=== PATIENT | female | born 1995 | race Caucasian/White ===

== ENCOUNTER 2019-11-27 10:13 | Emergency (ER) | payer BC, SELFPAY ==
--- NOTE | ~2019-11-27 | XR_ITS ---
EXAMINATION: XR chest 1V portable EXAM DATE: 11/27/2019 11:17 INDICATION: Midsternal chest pain. TECHNIQUE: Portable AP frontal chest x-ray was obtained. Comparison is made to prior examination from 09/02/2014. FINDINGS: The lungs are clear. There are no pleural effusions. The cardiomediastinal silhouette is within normal limits. There is no pneumothorax suspected. The bones and soft tissues are unremarkab le. IMPRESSION: Normal chest x-ray exam. Reviewed, dictated and finalized at location B. IMPRESSION: Normal chest x-ray exam.
[2019-11-27 10:23] VITALS: BP 120/70; PULSE 116; RESP 18; TEMP 36.7; O2SAT 100
--- NOTE | 2019-11-27 10:45 | ECG_ITS ---
Measurements Intervals [place] Rate: 113 P: 70 ME: 161 QRS: 68 QRSD: 85 T: 29 QT: 313 QTc: 429 Interpretive Statements SINUS TACHYCARDIA INCOMPLETE RIGHT BUNDLE BRANCH BLOCK ABNORMAL ECG Electronically Signed On 11-27-2019 15:41:54 CDT by Moshe Moss D.O.
[2019-11-27 10:53] VITALS: PULSE 116
[2019-11-27] MEDS: FAMOTIDINE 20 MG/2 ML VIAL IV PUSH (11:04)
[2019-11-27] MEDS: SODIUM CHLORIDE 0.9% IV 1,000 ML 999 ML IV CONT (11:05)
[2019-11-27 11:06] LABS: Basophils Absolute Auto 0.1 K/mm3 (0.0-0.1); Basophils Percent Auto 0.6 % (0.2-1.2); Eosinophils Absolute Auto 0.1 K/mm3 (0-0.3); Hematocrit 30.3 % (37.0-47.0); Hemoglobin 9.1 g/dL (12.0-15.0); Immature Granulocyte Absolute 0.02 K/mm3 (0.00-0.031); Immature Granulocyte Percent A 0.2 % (0-0.5); Lymphocytes Absolute Auto 0.95 K/mm3 (0.9-3.2); Lymphocytes Percent Auto 8.6 % (18.3-44.2); Mean Corpuscular Hemoglobin 23.8 pg (26-34); Mean Corpuscular Volume 79.1 fl (80-100); Mean Platelet Volume 9.2 fl (7.4-10.4); Monocytes Absolute Auto 0.8 K/mm3 (0.1-0.6); Monocytes Percent Auto 7.1 % (2.6-8.5); Neutrophils Absolute Auto 9.1 K/mm3 (1.3-6.7); Neutrophils Percent Auto 82.5 % (45.5-73.1); Platelet Count Result 499 k/mm3 (150-375); Red Blood Count 3.83 M/mm3 (4.2-5.4)
[2019-11-27 11:09] LABS: Add Urine Microscopic? YES; Appearance Urine Clear (Clear); Bacteria Urine Trace /hpf; Bilirubin Urine Negative (Negative); Blood Urine Negative (Negative); Color Urine Yellow (Yellow); Glucose Urine UA Negative (Negative); Ketones Urine Negative (Negative); Leukocyte Esterase Ur Negative LEU/UL (Negative); Mucus Urine Moderate /lpf; Nitrate Urine Negative (Negative); Protein Urine 1+ mg/dL (Negative); RBC Urine 0-2 /hpf (0-2); Specific Grav Ur 1.031 (1.001-1.035); Squamous Epithelial Cell Urine Occasional /hpf (Few)
[2019-11-27 11:17] LABS: INR 1.2; Prothrombin Time 14.4 Seconds (11.1-14.7)
[2019-11-27 11:18] LABS: Lactic Acid Reflex 0.7 mmol/L (0.7-2.1); Partial Thromboplastin Time 35.2 SECONDS (22.3-36.8)
[2019-11-27 11:21] LABS: Alanine Aminotransferase 10 U/L (4-35); Albumin Level 4.1 g/dL (3.5-5.1); Alkaline Phosphatase 83 U/L (38-126); Aspartate Amino Transferase 21 U/L (14-36); Bilirubin,Total 0.3 mg/dL (0.2-1.3); Blood Urea Nitrogen 9 mg/dL (7-17); Calcium 8.7 mg/dL (8.4-10.2); Carbon Dioxide 26 mmol/L (22-30); Chloride 104 mmol/L (98-107); Estimated CRCL calculation 98 ml/min; Estimated Glomerular Filt Rate > 60; Glucose 105 mg/dL (65-105); Potassium 3.6 mmol/L (3.4-5.0); Sodium 137 mmol/L (137-145)
[2019-11-27 11:42] LABS: CRP 7.1 mg/dL (<1.0)
[2019-11-27 12:18] VITALS: BP 115/75; PULSE 100; RESP 18; O2SAT 100
--- NOTE | 2019-11-27 12:29 | ED.GENADULT ---
HPI - General Adult General Chief complaint: Chest Pain Stated complaint: Cough Time Seen by Provider: 11/27/19 10:19 Source: patient Mode of arrival: ambulatory Limitations: no limitations History of Present Illness HPI narrative: Patient is a 24-year-old female who presents to emergency department for evaluation of upper respiratory symptoms for the last week denies any known sick contacts but was [place]. Patient notes she gets some pain to the chest with deep duration and coughing patient denies any fever vomiting diarrhea. Patient has not been seen for this complaint does note some rhinorrhea and sneezing. Patient has not taken anything for her symptoms and presents in no distress Related Data Home Medications Medication Instructions Recorded Confirmed cetirizine 10 mg tablet 10 mg PO DAILY 04/29/19 06/11/19 ibuprofen 200 mg tablet 200 mg PO Q6H PRN 05/22/19 06/11/19 norethindrone-e.estradiol-iron [Lo 1 tablet PO DAILY 11/27/19 11/27/19 Loestrin Fe] Allergies Allergy/AdvReac Type Severity Reaction Status Date / Time No Known Allergies Allergy Verified 11/27/19 10:27 Review of Systems Review of Systems: All systems reviewed & are unremarkable except as noted in HPI and below PMFSH Past Medical History Medical History Bilateral lower abdominal discomfort Blood in stool Healthy adult Left sided ulcerative colitis Lower abdominal pain Surgical History Surgical History History of wisdom tooth extraction Social History Social History Smoking status: Never smoker Second hand tobacco smoke exposure: No Alcohol intake: current Drinks per week: 2 Substance use: never Substance use type: does not use Gender identity (if verbalized by the patient): Female Exam Narrative: Exam Narrative: GENERAL: Well-appearing, well-nourished, and in no acute distress. HEAD: Normocephalic, atraumatic. EYES: PERRLA and EOMI. ENT: Nares clear, no rhinorrhea or epistaxis. Mucous membranes moist. Oropharynx without tonsillar hypertrophy exudate or other lesions. NECK: Supple. No adenopathy or masses. CHEST: Clear to auscultation. No respiratory distress. No wheezes rales or rhonchi HEART: Regular rate and rhythm. No murmur heard. Normal peripheral pulses. ABDOMEN: Soft, nontender, nondistended, normal active bowel sounds. EXTREMITIES: Normal range of motion. No edema. SKIN: Warm, dry, no rash. NEURO: No focal deficits. Alert and oriented x3. Cranial nerves II through XII grossly intact PSYCH: Normal mood and affect. Course Course Emergency Course: Patient in the room at this time resting comfortably aware of discussion and recommendations of primary care Consultations Consultation #1: Spoke with physician speech language pathologist assistant in primary care office who will follow the patient Date: 11/27/19 Time: 13:40 Vital Signs Vital signs: Vital Signs Temperature 98.0 F 11/27/19 10:23 Pulse Rate 116 H 11/27/19 10:23 Respiratory Rate 18 11/27/19 10:23 Blood Pressure 120/70 11/27/19 10:23 Pulse Oximetry 100 11/27/19 10:23 Temperature 98.0 F 11/27/19 10:23 Pulse Rate 100 11/27/19 12:18 Respiratory Rate 18 11/27/19 12:18 Blood Pressure 115/75 11/27/19 12:18 Pulse Oximetry 100 11/27/19 12:18 Medical Decision Making MDM Narrative Medical decision making narrative: Patient evaluated in the emergency department no high risk changes in the evaluation patient resting comfortably in the room in no distress agreeing to issues he wants to go that he quarantined himself and follow-up with primary care for COVID testing results and provided with reasons to return patient agrees with this plan feels comfortable and has been provided with reasons to return Vital Signs Vital Signs: Vital Signs [place]
[2019-11-27 13:51] VITALS: BP 112/66; PULSE 76; RESP 18; O2SAT 99
[2019-11-27 22:04] LABS: SARS-CoV-2 RNA PCR Negative
== END 2019-11-27 13:53 | disposition home or self-care (01) ==
PROVIDERS: Emergency Medicine Emergency Medical Services; Emergency Provider Emergency Medicine; PCP Family Medicine
DX: J06.9 Acute upper respiratory infection, unspecified (principal); Z20.828 Contact with and (suspected) exposure to other viral communicable diseases; R00.0 Tachycardia, unspecified; I45.10 Unspecified right bundle-branch block
CPT/HCPCS: 36415; 71045; 80053; 81001; 81025; 83605; 85025; 85610; 85730; 86140; 87635; 93005; 96365; 96375; 99284; C9803; J0131; J7030; U0003

== ENCOUNTER 2019-12-03 13:47 | Outpatient (CLI) | payer BC, SELFPAY ==
[2019-12-03 14:31] LABS: Hematocrit 30.1 % (37.0-47.0); Hemoglobin 8.8 g/dL (12.0-15.0); Mean Corpuscular HGB Conc 29.2 g/dl (32-36); Mean Corpuscular Hemoglobin 22.8 pg (26-34); Mean Platelet Volume 8.7 fl (7.4-10.4); Platelet Count Result 532 k/mm3 (150-375); Red Blood Count 3.86 M/mm3 (4.2-5.4); Red Cell Distribution Width 13.1 % (11.5-14.5); White Blood Count 8.3 K/mm3 (4.5-10.0)
[2019-12-03 14:42] LABS: D Dimer 1.45 ug/mL (<0.48)
[2019-12-03 14:46] LABS: Alanine Aminotransferase 14 U/L (4-35); Alkaline Phosphatase 69 U/L (38-126); Aspartate Amino Transferase 24 U/L (14-36); Bilirubin,Total 0.1 mg/dL (0.2-1.3); Blood Urea Nitrogen 8 mg/dL (7-17); CRP 4.5 mg/dL (<1.0); Calcium 8.9 mg/dL (8.4-10.2); Carbon Dioxide 30 mmol/L (22-30); Chloride 99 mmol/L (98-107); Estimated Glomerular Filt Rate > 60; Glucose 97 mg/dL (65-105); Potassium 3.7 mmol/L (3.4-5.0); Sodium 137 mmol/L (137-145)
[2019-12-03 15:10] LABS: Erythrocyte Sedimentation Rate 104 mm/hr (0-20)
[2019-12-03 17:19] LABS: Hepatitis B Surface Antigen Negative (Negative)
[2019-12-03 17:35] LABS: Hepatitis B Surface Anti Res Negative
[2019-12-07] LABS: NIL 0.01 IU/mL; Quantiferon TB Plus, 1T NEGATIVE (NEGATIVE)
[2019-12-07 05:50] LABS: Hepatitis B Core Ab Total Nonreactive (Nonreactive)
[2019-12-12 17:21] LABS: TPMT Activity 17
== END 2019-12-03 13:48 | disposition home or self-care (01) ==
PROVIDERS: Internal Medicine Gastroenterology; PCP Family Medicine; Visit Provider Physician Assistant
DX: K51.519 Left sided colitis with unspecified complications (principal); R00.0 Tachycardia, unspecified; D64.9 Anemia, unspecified; M79.89 Other specified soft tissue disorders
CPT/HCPCS: 36415; 80053; 82657; 85027; 85380; 85652; 86140; 86480; 86704; 86706; 87340

== ENCOUNTER 2019-12-03 17:37 | Outpatient (CLI) | payer BC, SELFPAY ==
--- NOTE | ~2019-12-03 | CT_ITS ---
EXAMINATION: CTA chest PE protocol DATE: 12/03/2019 18:05 INDICATION: Chest pain, positive d-dimer TECHNIQUE: Computed tomography angiography (CTA) of the chest was performed with 100 mL Omnipaque-350 intravenous contrast timed to evaluate the pulmonary arteries. Coronal maximum intensity projection 3D-reconstructions were created by the technologist. The dose-length product (DLP) was 137.23 mGy-cm. Automated exposure control and iterative reconstruction technique were employed. COMPARISON: 05/22/2016 FINDINGS: The pulmonary arteries are well-opacified. No pulmonary embolism is identified. The lungs a re free of acute opacities. There our stable bilateral pulmonary nodules, the largest of which measur es 5 mm in the left lower lobe, most consistent with old granulomatous disease. No new or suspicious pulmonary nodule is identified. There is no pleural effusion or pneumothorax. No pathologically enlar ged thoracic lymph nodes are identified. The heart size is normal. The visualized osseous structures are unremarkable. IMPRESSION: 1. No pulmonary embolism or acute cardiopulmonary abnormality. Reviewed, dictated and finalized at location A.
== END 2019-12-03 17:38 | disposition home or self-care (01) ==
PROVIDERS: PCP Family Medicine; Visit Provider Physician Assistant
DX: R07.9 Chest pain, unspecified (principal); R79.1 Abnormal coagulation profile
CPT/HCPCS: 71275; Q9967

== ENCOUNTER 2019-12-17 16:01 | Outpatient (CLI) | payer BC, SELFPAY ==
--- NOTE | ~2019-12-17 | US_ITS ---
EXAMINATION: US venous doppler [facility] DATE: 12/17/2019 16:28 INDICATION: Lower limb swelling. TECHNIQUE: Grayscale ultrasound images without and with compression and Doppler ultrasound images of the bilateral lower extremity veins were obtained. COMPARISON: None. FINDINGS: The visualized portions of right common femoral vein, profunda (deep) femoral vein, femoral vein, pop liteal vein, peroneal veins, posterior tibial veins, and greater saphenous vein outflow are patent. The visualized portions of left common femoral vein, profunda femoral vein, femoral vein, popliteal v ein, peroneal veins, posterior tibial veins, and greater saphenous vein outflow are patent. IMPRESSION: 1. No deep venous thrombosis. Reviewed, dictated and finalized at location A.
== END 2019-12-17 16:02 | disposition home or self-care (01) ==
PROVIDERS: PCP Family Medicine; Visit Provider Physician Assistant
DX: M79.89 Other specified soft tissue disorders (principal)
CPT/HCPCS: 93970

== ENCOUNTER 2020-01-19 15:49 | Emergency (ER) | payer BC, SELFPAY ==
[2020-01-19 15:51] VITALS: BP 138/65; PULSE 105; RESP 18; TEMP 37.1; O2SAT 100
--- NOTE | 2020-01-19 16:08 | ED.GENADULT ---
HPI - General Adult General Chief complaint: Skin/Abscess/Foreign Body <JESUS Hills Last Filed: 01/19/20 16:14> Stated complaint: INFECTED BUG BITE <JESUS Hills Last Filed: 01/19/20 16:14> Time Seen by Provider: 01/19/20 15:58 <JESUS Hills Last Filed: 01/19/20 16:14> Source: patient <JESUS Hills Last Filed: 01/19/20 16:14> Mode of arrival: ambulatory <JESUS Hills Last Filed: 01/19/20 16:14> Limitations: no limitations <JESUS Hills Last Filed: 01/19/20 16:14> History of Present Illness HPI narrative: Patient is a 24-year-old female who presents to emergency department for evaluation of wound to the left constantino that is been there for 1 month believes that it probably started after being bit by insects have been given antibiotics which she finished several days ago and believes now that the wound is slightly increasing in size. Patient denies fever chills nausea vomiting or similar occurrence in the past pain is localized to the lesion <JESUS Hills Last Filed: 01/19/20 16:14> Related Data Home medications: Home Medications Medication Instructions Recorded Confirmed cetirizine 10 mg tablet 10 mg PO DAILY 04/29/19 12/03/19 ibuprofen 200 mg tablet 200 mg PO Q6H PRN 05/22/19 12/03/19 norethindrone-e.estradiol-iron [Lo 1 tablet PO DAILY 11/27/19 12/03/19 Loestrin Fe] <JESUS Hills Last Filed: 01/19/20 16:14> Allergies/adverse reactions: Allergies Allergy/AdvReac Type Severity Reaction Status Date / Time No Known Allergies Allergy Verified 12/29/19 09:21 <JESUS Hills Last Filed: 01/19/20 16:14> Review of Systems Review of Systems: All systems reviewed & are unremarkable except as noted in HPI and below <JESUS Hills Last Filed: 01/19/20 16:14> [facility] Past Medical History Medical History: Medical History Anemia Ankle swelling Bilateral lower abdominal discomfort Blood in stool Healthy adult Left sided ulcerative colitis Lower abdominal pain <Vu Atkins PA-C - Last Filed: 01/19/20 16:14> Surgical History Surgical History: Surgical History History of wisdom tooth extraction <Vu Atkins PA-C - Last Filed: 01/19/20 16:14> Social History Social History: Social History Smoking status: Never smoker Second hand tobacco smoke exposure: No Alcohol intake: current Drinks per week: 2 Substance use: never Substance use type: does not use Gender identity (if verbalized by the patient): Female <Vu Atkins PA-C - Last Filed: 01/19/20 16:14> Exam Narrative: Exam Narrative: GENERAL: Well-appearing, well-nourished, and in no acute distress. HEAD: Normocephalic, atraumatic. EYES: PERRLA and EOMI. ENT: Nares clear, no rhinorrhea or epistaxis. Mucous membranes moist. CHEST: Clear to auscultation. No respiratory distress. No wheezes rales or rhonchi HEART: Regular rate and rhythm. No murmur heard. Normal peripheral pulses. EXTREMITIES: Normal range of motion. No edema. SKIN: Warm, dry, no rash. 4 cm annular tender lesion of the left constantino mid constantino no fluctuance no lymphangitic streaking NEURO: No focal deficits. Alert and oriented x3. Neurovascularly intact PSYCH: Normal mood and affect. <Vu Atkins PA-C - Last Filed: 01/19/20 16:14> Course Course Emergency Course: Patient in the room in no distress aware of case findings treatment plan and diagnosis agreeing to follow-up as directed or to return if symptoms worsen or concerns <Vu Atkins PA-C - Last Filed: 01/19/20 16:14> Vital Signs Vital signs: Vital Signs Temperature 98.8 F 01/19/20 15:51 Pulse Rate 105 H 01/19/20 15:51 Respira
[2020-01-19 16:31] VITALS: PULSE 98; RESP 12; O2SAT 99
== END 2020-01-19 16:34 | disposition home or self-care (01) ==
PROVIDERS: Emergency Provider Emergency Medicine; PCP Family Medicine
DX: L03.116 Cellulitis of left lower limb (principal)
CPT/HCPCS: 99283